=== PATIENT | male | born 1985 | race Caucasian/White ===

== ENCOUNTER 2018-12-13 03:31 | Emergency (ER) | payer MEDICAID ==
[~2018-12-13] VITALS: Ht 177.8 cm; Wt 81.7 kg
[~2018-12-13 03:31] MED LIST: ASPI325T17 PO; CLON1PAT2 PO; LORA2TAB99 PO; METH20TA8 PO; OXYC-302 PO
[2018-12-13 04:24] LABS: BASOPHILS % (AUTO) 0 % (0-1); EOSINOPHILS # (AUTO) 0.11 x10^3/uL (0-0.4); EOSINOPHILS % (AUTO) 2 % (1-7); LYMPHOCYTES # (AUTO) 2.13 x10^3/uL (1-3.4); LYMPHOCYTES % (AUTO) 36 % (22-44); MD NO; MEAN CORPUSCULAR HEMOGLOBIN 34.2 pg (27.5-34.5); MEAN CORPUSCULAR HGB CONC 34.1 g/dL (33.2-36.2); MEAN CORPUSCULAR VOLUME 100.4 fL (81-97); MEAN PLATELET VOLUME 7.6 fL (7.4-10.4); MONOCYTES # (AUTO) 0.73 x10^3/uL (0.2-0.8); MONOCYTES % (AUTO) 12 % (2-9); NEUTROPHILS # (AUTO) 2.93 x10^3/uL (1.8-6.8); NEUTROPHILS % (AUTO) 50 % (42-75); PLATELET COUNT 260 x10^3/uL (130-400); RED BLOOD COUNT 5.03 x10^6/uL (4.38-5.82); RED CELL DISTRIBUTION WIDTH 12.1 % (9.4-14.8)
--- NOTE | 2018-12-13 04:30 | NUR ---
Pt states feeling anxious in room multiple times and "my hands are really sweaty and then it goes away." Md notified and awaiting new orders. Vitals remain stable.
[2018-12-13 04:34] LABS: ALBUMIN 4.1 g/dL (3.4-5.0); ANION GAP 6 mmol/L (5-15); CALCIUM 8.8 mg/dL (8.5-10.1); CHLORIDE 100 mmol/L (98-107); CREATININE 0.91 mg/dL (0.7-1.3)
[2018-12-13 04:38] LABS: TROPONIN I < 0.015 ng/mL (0.000-0.045)
[2018-12-13] MEDS ORDERED: LORazepam 0.5MG TABLET ONE (04:51)
[2018-12-13] MEDS ORDERED: LORazepam 0.5MG TABLET PO ONE (05:00)
[2018-12-13 05:22] VITALS: BP 140/90
--- NOTE | 2018-12-13 05:48 | NUR ---
All results back. Pt up for recheck. No immediate needs from pt. Awaiting md recheck.
== END 2018-12-13 05:54 | disposition home or self-care (01) ==
LOC: ED 05:14
DX: R07.2 Precordial pain (principal); F41.9 Anxiety disorder, unspecified; R20.2 Paresthesia of skin; F17.200 Nicotine dependence, unspecified, uncomplicated; Z98.890 Other specified postprocedural states; Z88.5 Allergy status to narcotic agent
CPT/HCPCS: 36415; 71045; 80048; 82040; 84484; 85025; 93005; 99284